=== PATIENT | female | born 1965 | race Caucasian/White ===

== ENCOUNTER 2020-02-01 14:49 | Outpatient (CLI) | payer OTHER, SELFPAY ==
--- NOTE | ~2020-02-01 | MM_ITS ---
EXAMINATION: MM screening negrita BI w tammy HISTORY: Screening mammogram, family history of breast cancer in her mother. TECHNIQUE: Craniocaudal and mediolateral oblique 3-D tomosynthesis images were obtained and synthetic 2-D images were generated. CAD analysis was submitted and interpreted. COMPARISON: 01/21/2019, 02/03/2018, 01/30/2017 BREAST PARENCHYMAL COMPOSITION: The breasts are heterogeneously dense, which may obscure small masses . FINDINGS: There is no evidence of suspicious mass, calcification, or architectural distortion to sugg est malignancy in either breast. There has been no suspicious interval change. IMPRESSION: 1. No mammographic evidence of malignancy. 2. Recommend routine screening mammography in one year. BI-RADS Category 1: Negative Reviewed, dictated and finalized at location A.
== END 2020-02-01 14:50 | disposition home or self-care (01) ==
PROVIDERS: PCP Physician Assistant
DX: Z12.31 Encounter for screening mammogram for malignant neoplasm of breast (principal)
CPT/HCPCS: 77063; 77067

== ENCOUNTER → 2020-08-07 15:14 | Outpatient (CLI) | payer BC, SELFPAY ==
--- NOTE | ~2020-08-07 | CT_ITS ---
EXAMINATION: CT chest w con DATE: 08/07/2020 15:55 INDICATION: Persistent cough, history of melanoma TECHNIQUE: Transaxial computed tomographic images of the chest were obtained after the administration of 75 cc of Omnipaque 350 intravenous contrast. The dose-length product (DLP) was 160.16 mGy-cm. Ite rative reconstruction was used. COMPARISON: Ultrasound, 08/27/2009 FINDINGS: The lungs are free of acute opacities. There is no pleural effusion or pneumothorax. Mild e mphysema is noted. No pathologically enlarged thoracic lymph nodes are identified. The heart size is normal. There is mild thoracic spondylosis. A hypoattenuating mass of the liver dome corresponds to a hyperechoic mass seen on the 2009 comparison ultrasound. Combination of findings is most consistent with a hemangioma. IMPRESSION: 1. No acute cardiopulmonary abnormality. Reviewed, dictated and finalized at location A. R CUTTER MACHINE
[2020-08-07 15:45] LABS: Estimated Glomerular Filt Rate > 60
== END ==
PROVIDERS: PCP Physician Assistant; Visit Provider Physician Assistant
DX: R05 Cough (principal)
CPT/HCPCS: 71260; Q9967

== ENCOUNTER → 2020-09-14 10:56 | Outpatient (CLI) | payer BC, SELFPAY ==
--- NOTE | ~2020-09-14 | MR_ITS ---
EXAMINATION: MR brain IAC wo/w con EXAM DATE: 09/14/2020 11:48 INDICATION: Dizziness, giddiness. TECHNIQUE: Multi-sequential, multiplanar MR images of the brain, brainstem, internal auditory canals were obtained without contrast. Whole brain sagittal T1, axial diffusion, gradient echo (T2*), T1, T 2, FLAIR sequences obtained. High resolution coronal 3-D FIESTA, coronal T1 FSE, axial T1 FSPGR of t he internal auditory canals. Patient was then injected with 12 cc Multihance contrast intravenously. Postcontrast axial and coronal T1 weighted whole brain, axial and coronal high resolution T1 IAC seq uences obtained. There is no prior study for comparison. FINDINGS: No evidence of mastoid or middle ear opacification. The 7th/8th cranial nerve complexes a re symmetric, normal in course and caliber. No cerebellopontine angle masses. Posterior fossa unrem arkable. There are no areas of restricted diffusion to suggest acute infarction. There is no acute hemorrhage seen on the T2*, a hemosiderin sensitive sequence. No intraparenchymal brain mass. The ventricles a re normal in size. There are no extra-axial collections. Flow voids are seen in the cerebral arteri es on the T2-weighted sequences consistent with their expected patency. The orbits are unremarkable. Soft tissue is unremarkable. There are no areas of abnormal enhancement on the postcontrast image s. IMPRESSION: 1. Unremarkable brain MRI examination. Reviewed, dictated and finalized at location B. INE [employer]BLER
[2020-09-14 11:14] LABS: Estimated Glomerular Filt Rate > 60
== END ==
PROVIDERS: PCP Physician Assistant; Visit Provider Physician Assistant
DX: R42 Dizziness and giddiness (principal)
CPT/HCPCS: 70553; A9577

== ENCOUNTER → 2020-11-06 15:42 | Outpatient (REF) | payer BC, SELFPAY | LOC: ANHLAB 15:42 | PROVIDERS: PCP Physician Assistant; Visit Provider Nurse Practitioner | DX: D49.2 Neoplasm of unspecified behavior of bone, soft tissue, and skin (principal) | CPT/HCPCS: 88305 ==

== ENCOUNTER → 2020-12-29 08:44 | Outpatient (CLI) | payer BC, SELFPAY ==
--- NOTE | ~2020-12-29 | MR_ITS ---
EXAMINATION: MR cervical spine wo con EXAM DATE: 12/29/2020 10:02 INDICATION: Right arm pain neck/right shoulder/right arm pain x1yr, no trauma. TECHNIQUE: Multi-sequential, multiplanar MR images of the cervical spine were obtained without contra st. Axial T2, axial T2 MERGE sequence. Sagittal T1, T2, T2 fat saturation images also obtained. Th ere is no prior study for comparison. FINDINGS: There is moderate disc disease at C5-6 with 2-3 mm retrolisthesis at this level. The verte bral bodies are otherwise aligned. The vertebral body and disc heights are otherwise well maintained. There are no suspicious marrow signal abnormalities. The spinal cord signal intensity and intrinsic morphology is normal. Cervicomedullary junction is normal in appearance. Paraspinal soft tissue is un remarkable. Level by level evaluation: C2-C3: Disc does not extend beyond the endplate margin. Uncovertebral joint arthropathy: None. Facet joint arthropathy: Mild bilateral. Neural foraminal stenosis: No stenosis. Central canal stenosis: No stenosis. C3-C4: Disc does not extend beyond the endplate margin. Uncovertebral joint arthropathy: None. Facet joint arthropathy: Mild bilateral. Neural foraminal stenosis: No stenosis. Central canal stenosis: No stenosis. C4-C5: Disc does not extend beyond the endplate margin. Uncovertebral joint arthropathy: Mild right. Facet joint arthropathy: Moderate right, mild to moderate left. Neural foraminal stenosis: No stenosis. Central canal stenosis: No stenosis. C5-C6: There is a mild diffuse disc bulge. Uncovertebral joint arthropathy: Moderate bilateral right greater than left. Facet joint arthropathy: Moderate bilateral. Neural foraminal stenosis: Moderate bilateral. Central canal stenosis: Mild. C6-C7: Disc does not extend beyond the endplate margin. Uncovertebral joint arthropathy: Mild bilateral. Facet joint arthropathy: Mild. Neural foraminal stenosis: No stenosis. Central canal stenosis: No stenosis. C7-T1: Disc does not extend beyond the endplate margin. Uncovertebral joint arthropathy: None. Facet joint arthropathy: Mild bilateral. Neural foraminal stenosis: No stenosis. Central canal stenosis: No stenosis. IMPRESSION: 1. C5-6 grade 1 retrolisthesis, moderate bilateral neural foraminal stenosis. Reviewed, dictated and finalized at location A.
== END ==
PROVIDERS: Visit Provider Internal Medicine
DX: M79.601 Pain in right arm (principal); R29.898 Other symptoms and signs involving the musculoskeletal system; R20.0 Anesthesia of skin; M47.812 Spondylosis without myelopathy or radiculopathy, cervical region
CPT/HCPCS: 72141

== ENCOUNTER 2021-02-15 14:11 | Outpatient (CLI) | payer BC, SELFPAY ==
--- NOTE | ~2021-02-15 | MM_ITS ---
EXAMINATION: MM screening negrita BI w tammy HISTORY: Screening mammogram TECHNIQUE: Craniocaudal and mediolateral oblique 3-D tomosynthesis images were obtained and synthetic 2-D images were generated. CAD analysis was submitted and interpreted. COMPARISON: 02/02/2020, 01/21/2019, 02/03/2018 bilateral digital screening mammogram examinations BREAST PARENCHYMAL COMPOSITION: The breasts are heterogeneously dense, which may obscure small masses . FINDINGS: There is no evidence of suspicious mass, calcification, or architectural distortion to sugg est malignancy in either breast. There has been no suspicious interval change. IMPRESSION: 1. No mammographic evidence of malignancy. 2. Recommend routine screening mammography in one year. BI-RADS Category 1: Negative Reviewed, dictated and finalized at location A.
== END 2021-02-15 14:12 | disposition home or self-care (01) ==
LOC: ANHIMG 14:15
PROVIDERS: PCP Family Medicine
DX: Z12.31 Encounter for screening mammogram for malignant neoplasm of breast (principal)
CPT/HCPCS: 77063; 77067

== ENCOUNTER → 2021-04-23 12:27 | Outpatient (CLI) | payer BC, SELFPAY ==
--- NOTE | ~2021-04-23 | XR_ITS ---
EXAMINATION: XR_CERV2-3V_CR EXAM DATE: 04/23/2021 12:49 INDICATION: Initial encounter following injury, with pain of the neck pain, fusion. TECHNIQUE: Frontal and lateral projections of the cervical spine. There is no prior study for magaly rasheed. FINDINGS: There is cervical anterior and interbody fusion at the C5-6 level. The vertebral bodies ar e aligned in the AP dimension. Neck maintained evidence of mild to moderate cervical arthropathy. T he odontoid process is intact. The lateral masses of C1 line up with C2. Prevertebral soft tissue an d pre-dens space are within normal limits. Lung apices unremarkable. IMPRESSION: Mild to moderate cervical arthropathy. Intact C5-6 fusion. Reviewed, dictated and finalized at location A.
== END ==
PROVIDERS: PCP Physician Assistant; Visit Provider Neurological Surgery
DX: M47.812 Spondylosis without myelopathy or radiculopathy, cervical region (principal); Z98.1 Arthrodesis status
CPT/HCPCS: 72040

== ENCOUNTER → 2021-05-21 16:52 | Outpatient (CLI) | payer BC, SELFPAY ==
--- NOTE | ~2021-05-21 | XR_ITS ---
XR_CERV2-3V_CR DATE: 05/21/2021 17:18 INDICATION: Neck pain TECHNIQUE: AP, lateral views COMPARISON: 04/23/2021 cervical spine FINDINGS: Status post anterior and interbody spinal fusion at C5-6, which appears stable since 021. C1 and C2 are normally aligned and the odontoid process is intact. No fracture or dislocation or lock ed facet or prevertebral soft tissue swelling. IMPRESSION: Status post anterior and interbody spinal fusion at C5-6 Reviewed, dictated and finalized at Location A. Reviewed, dictated and finalized at location A.
== END ==
PROVIDERS: PCP Physician Assistant; Visit Provider Neurological Surgery
DX: M54.2 Cervicalgia (principal); Z98.1 Arthrodesis status
CPT/HCPCS: 72040

== ENCOUNTER 2021-05-31 10:01 | Outpatient (CLI) | payer BC, SELFPAY ==
--- NOTE | 2021-06-01 12:17 | WPDPFTINT ---
PFT Procedure Performed PFT Procedure Performed Spirometry with Pre/Post Bronchodilator Plethysmography (Lung Vol) Diffusing Cap (DLCO) Flow Vol Loop PFT Interpretation This is a pulmonary function test with pre and post-bronchodilator spirometry, plethysmography and diffusing capacity. The test was performed and results interpreted in accordance with the 2019 and 2005 ATS/ERS Task Force guidelines respectively using the Global Lung Function Initiative-2012 reference equations. Patient demonstrated good effort and cooperation. Reproducibility criteria were met. The quality of the pre bronchodilator spirometry maneuver was Grade A and post bronchodilator spirometry maneuver was Grade A. Findings: Spirometry: The contour the inspiratory and expiratory flow tracing are normal. The pre bronchodilator FVC is 3.46 L, 103% predicted. The pre bronchodilator FEV1 is 2.50 L, 93% predicted. The FEV1: FVC ratio is 72%. The post bronchodilator FVC is 3.55 L, representing a 2% increase. The post bronchodilator FEV1 is 2.65 L, representing a 6% increase. The post bronchodilator FEV1: FVC ratio is 75%. Plethysmography: The total lung capacity is 5.26 L, 104% predicted. The functional residual capacity is 3.00 L, 105% predicted. The residual volume is 1.80 L, 96% predicted. Diffusing capacity: The absolute diffusion capacity is 20.0, 90% predicted. The diffusing capacity corrected for alveolar volume is 4.32, 95% predicted. Impression: The spirometry is normal without evidence of an obstructive abnormality. There is no significant improvement after inhaling a single dose of albuterol. The lung volumes are normal. The diffusing capacity is normal. There are no prior studies for comparison
== END 2021-05-31 10:02 | disposition home or self-care (01) ==
LOC: ANHPFT 10:02
PROVIDERS: PCP Physician Assistant; Visit Provider Physician Assistant
DX: R05.9 Cough, unspecified (principal)
CPT/HCPCS: 94060; 94726; 94729

== ENCOUNTER 2022-03-14 14:25 | Outpatient (CLI) | payer OTHER, SELFPAY ==
--- NOTE | ~2022-03-14 | MM_ITS ---
EXAMINATION: MM screening negrita BI w tammy HISTORY: Screening TECHNIQUE: Craniocaudal and mediolateral oblique 3-D tomosynthesis images were obtained and synthetic 2-D images were generated. CAD analysis was submitted and interpreted. COMPARISON: Comparison to multiple prior studies sequentially, with oldest reviewed study dated 04/15. BREAST PARENCHYMAL COMPOSITION: The breasts are heterogeneously dense, which may obscure small masses FINDINGS: There is no evidence of suspicious mass, calcification, or architectural distortion to sugg est malignancy in either breast. There has been no suspicious interval change. IMPRESSION: 1. No mammographic evidence of malignancy. 2. Recommend routine screening mammography in one year. BI-RADS Category 1: Negative Reviewed, dictated and finalized at location A.
== END 2022-03-14 14:26 | disposition home or self-care (01) ==
LOC: ANHIMG 14:27
PROVIDERS: PCP Physician Assistant; Visit Provider Obstetrics & Gynecology
DX: Z12.31 Encounter for screening mammogram for malignant neoplasm of breast (principal)
CPT/HCPCS: 77063; 77067

== ENCOUNTER → 2022-04-28 16:46 | Outpatient (CLI) | payer OTHER, SELFPAY ==
--- NOTE | ~2022-04-28 | XR_ITS ---
EXAMINATION: XR cervical spine 4-5V DATE: 04/28/2022 18:14 INDICATION: Neck pain. TECHNIQUE: 4 views of cervical spine were obtained. COMPARISON: Cervical spine radiographs 05/21/2021 FINDINGS: There is 2 mm retrolisthesis of C5 on C6. There are changes of anterior fusion procedure at C5-C6 with interbody device, healed interbody bone graft, and anterior plate and screws. Vertebral b jesus heights are normal. There is mildly decreased disc height at C4-C5. There is multilevel mild face t joint osteoarthritis. There is mild central canal stenosis at C5-C6. No prevertebral soft tissue sw elling. IMPRESSION: 1. Anterior fusion procedure at C5-C6. 2. Mild cervical spondylosis. Reviewed, dictated and finalized at location A.
== END ==
PROVIDERS: PCP Physician Assistant; Visit Provider Neurological Surgery
DX: M47.892 Other spondylosis, cervical region (principal); Z98.1 Arthrodesis status
CPT/HCPCS: 72050

== ENCOUNTER 2022-05-23 14:56 | Outpatient (CLI) | payer OTHER, SELFPAY ==
--- NOTE | 2022-05-23 | ECG_ITS ---
Measurements Intervals [place] Rate: 72 P: 63 WI: 138 QRS: 61 QRSD: 97 T: 81 QT: 389 QTc: 428 Interpretive Statements SINUS RHYTHM BORDERLINE T WAVE ABNORMALITY- HIGH LATERAL LEADS BORDERLINE ECG NO PREVIOUS ECG AVAILABLE FOR COMPARISON Electronically Signed On 05-23-2022 15:37:44 CDT by Randall Shah D.O.
== END 2022-05-23 14:57 | disposition home or self-care (01) ==
LOC: ANHCARD 14:58
PROVIDERS: PCP Physician Assistant; Visit Provider Orthopaedic Surgery Hand Surgery
DX: M18.0 Bilateral primary osteoarthritis of first carpometacarpal joints (principal); R94.31 Abnormal electrocardiogram [ECG] [EKG]
CPT/HCPCS: 93005

== ENCOUNTER 2023-03-16 08:14 | Outpatient (CLI) | payer OTHER, SELFPAY ==
--- NOTE | ~2023-03-16 | MM_ITS ---
EXAMINATION: MM screening negrita BI w tammy HISTORY: Screening mammogram, family history of breast cancer in her mother. TECHNIQUE: Craniocaudal and mediolateral oblique 3-D tomosynthesis images were obtained and synthetic 2-D images were generated. CAD analysis was submitted and interpreted. COMPARISON: 03/14/2022, 02/15/2021, 02/01/2020 BREAST PARENCHYMAL COMPOSITION: The breasts are heterogeneously dense, which may obscure small masses . FINDINGS: No suspicious mass, calcification, or architectural distortion are identified in either [place] ast to suggest malignancy. There has been no suspicious interval change. IMPRESSION: 1. No mammographic evidence of malignancy. 2. Recommend routine screening mammography in one year. BI-RADS Category 1: Negative Reviewed, dictated and finalized at location A.
== END 2023-03-16 08:15 | disposition home or self-care (01) ==
LOC: ANHIMG 08:16
PROVIDERS: PCP Physician Assistant; Visit Provider Obstetrics & Gynecology
DX: Z12.31 Encounter for screening mammogram for malignant neoplasm of breast (principal)
CPT/HCPCS: 77063; 77067

== ENCOUNTER 2024-04-19 07:36 | Outpatient (CLI) | payer OTHER, SELFPAY ==
--- NOTE | ~2024-04-19 | MM_ITS ---
EXAMINATION: MM screening negrita BI w tammy HISTORY: Screening TECHNIQUE: Craniocaudal and mediolateral oblique 3-D tomosynthesis images were obtained and synthetic 2-D images were generated. CAD analysis was submitted and interpreted. COMPARISON: Comparison to multiple prior studies sequentially, with oldest reviewed study dated 03/16. BREAST PARENCHYMAL COMPOSITION: Dense: The breasts are heterogeneously dense, which may obscure small masses FINDINGS: There is no evidence of suspicious mass, calcification, or architectural distortion to sugg est malignancy in either breast. There has been no suspicious interval change. IMPRESSION: 1. No mammographic evidence of malignancy. 2. Recommend routine screening mammography in one year. BI-RADS Category 1: Negative Reviewed, dictated and finalized at location B.
== END 2024-04-19 07:37 | disposition home or self-care (01) ==
PROVIDERS: PCP Physician Assistant; Visit Provider Obstetrics & Gynecology
DX: Z12.31 Encounter for screening mammogram for malignant neoplasm of breast (principal)
CPT/HCPCS: 77063; 77067